=== PATIENT | male | born 1980 | race Caucasian/White ===

== ENCOUNTER 2022-03-23 10:07 | Outpatient (CLI) | payer OTHER, SELFPAY ==
[2022-03-23 13:37] LABS: Chloride* 107 mmol/L (96-114); Sodium* 141 mmol/L (135-149)
[2022-03-23 13:38] LABS: Potassium* 4.7 mmol/L (3.6-5.1)
[2022-03-23 13:40] LABS: Carbon Dioxide* 27 mmol/L (20-32); Cholesterol* 175 mg/dL (90-199); Creatinine* 0.9 mg/dL (0.5-1.5); Estimated Glomerular Filt Rate 111 ml/min
[2022-03-23 13:41] LABS: Blood Urea Nitrogen* 14 mg/dL (5-24); Calcium* 9.8 mg/dL (8.4-10.6); Glucose* 85 mg/dL (60-115); HDL Cholesterol* 61 mg/dL (>=40); LDL Cholesterol Calculated 96 mg/dL (<100); Triglycerides* 91 mg/dL (40-149)
== END 2022-03-23 10:08 | disposition home or self-care (01) ==
LOC: NFLDREF 10:07
PROVIDERS: PCP Family Medicine; Visit Provider Family Medicine
DX: I10 Essential (primary) hypertension (principal); E78.5 Hyperlipidemia, unspecified
CPT/HCPCS: 80048; 80061

== ENCOUNTER 2022-04-25 08:18 | Outpatient (CLI) | payer OTHER, SELFPAY ==
--- NOTE | 2022-04-25 09:37 | W.ANESCHARGE ---
Anesthesia Charges Start Date/Time Anesthesia Start Date: 04/25/22 Anesthesia Start Time: 09:06 Stop Date/Time Anesthesia Stop Date: 04/25/22 Anesthesia Stop Time: 09:34 Summary Emergency: No
--- NOTE | 2022-04-25 09:50 | W.ANESCHARGE ---
Anesthesia Charges Start Date/Time Anesthesia Start Date: 04/25/22 Anesthesia Start Time: 09:06 Stop Date/Time Anesthesia Stop Date: 04/25/22 Anesthesia Stop Time: 09:34 Summary Emergency: No
== END 2022-04-25 08:19 | disposition home or self-care (01) ==
PROVIDERS: PCP Family Medicine; Visit Provider Surgery
DX: K92.1 Melena (principal); K62.5 Hemorrhage of anus and rectum
CPT/HCPCS: 00811; 45385; 88305; J2704

== ENCOUNTER 2022-06-20 19:23 | Outpatient (CLI) | payer OTHER, SELFPAY ==
--- NOTE | 2022-07-11 08:50 | P.SLS_ITS ---
Sleep Study Details Details Interpreting Provider: Yosef Date of Sleep Study: 06/20/22 Sleep Study Details: STUDY TYPE:? Home ? BMI:? 43.3 ORDERING PROVIDER:Mikayla Navas INDICATION:? Concerns about sleep apnea ? SLEEP SUMMARY:? 491 monitored minutes RESPIRATORY SUMMARY:? AHI 74.3, supine 84.6, left lateral 60.8, right lateral 49.9 Low oxygen 74 10.1% of study oxygen less than 90% Snoring 17.3% PERIODIC LIMB MOVEMENTS OF SLEEP:? Not recorded CARDIAC:? Range 59-101, mean 74.2 IMPRESSION:? Severe obstructive sleep apnea somewhat worse in the supine pos ition but severe in all positions RECOMMENDATION: CPAP either AutoSet or in-lab titration. Central apnea index was 1.81 AutoSet CPAP would be reasonable.
== END 2022-06-20 19:24 | disposition home or self-care (01) ==
LOC: SLEEP 19:24
PROVIDERS: PCP Family Medicine; Visit Provider Otolaryngology
DX: G47.33 Obstructive sleep apnea (adult) (pediatric) (principal)
CPT/HCPCS: 95806

== ENCOUNTER 2022-07-11 10:54 | Outpatient (CLI) | payer OTHER, SELFPAY ==
--- NOTE | 2022-07-11 11:00 | CRLHL7_ITS ---
For Patients: As a result of the Century Cures Act, medical imaging exams and procedure reports are released immediately into your electronic medical record. You may view this report before your referring provider. If you have questions, please contact your health care provider. INDICATION: OBSTRUCTIVE SLEEP APNEA COMPARISON: none TECHNIQUE: A CT volumetric acquisition was performed of the neck during intravenous infusion of 147 cc Isovue 370 nonionic intravenous contrast. Please note that all CT scans at this facility use dose modulation, iterative reconstruction, and/or weight-based dosing when appropriate to reduce radiation dose to as low as reasonably achievable. FINDINGS: The CT images demonstrate normal aeration of the mastoid air cells and middle ear cavities. The paranasal sinuses are clear. Mild leftward deviation of the nasal septum. No jerry bullosa or nasal polyps. The parotid and submandibular glands are of normal size and have uniform enhancement. The oropharynx appears normal. The valleculae, epiglottis, aryepiglottic folds and piriform sinuses appear normal. There is a normal appearance of the larynx and subglottic trachea. The thyroid gland is of normal size and has uniform density. There is no evidence of lymphadenopathy within the anterior and posterior cervical triangles or within the supraclavicular region. The lung apices are clear. Normal osseous structures. IMPRESSION: No cervical adenopathy or mass. Mild leftward curvature of the nasal septum without jerry bullosa or nasal polyps. Please note that all CT scans at this facility use dose modulation, iterative reconstruction, and/or weight-based dosing when appropriate to reduce radiation dose to as low as reasonably achievable. Dictated by Manuel Manley MD @ 07/11/2022 1:37:17 PM (Electronically Signed)
== END 2022-07-11 10:55 | disposition home or self-care (01) ==
LOC: CT 10:55
PROVIDERS: PCP Family Medicine; Visit Provider Internal Medicine
DX: G47.33 Obstructive sleep apnea (adult) (pediatric) (principal); J34.2 Deviated nasal septum
CPT/HCPCS: 70491; Q9967

== ENCOUNTER 2022-07-17 14:40 | Outpatient (CLI) | payer OTHER, SELFPAY ==
--- NOTE | 2022-07-17 15:00 | CRLHL7_ITS ---
For Patients: As a result of the Cures Act, medical imaging exams and procedure reports are released immediately into your electronic medical record. You may view this report before your referring provider. If you have questions, please contact your health care provider. CLINICAL HISTORY: Neck pain TECHNIQUE: The carotid circulations and the vertebral arteries in the neck were examined with collins-scale ultrasound, color-flow and Doppler spectral analysis. Degrees of stenosis were determined using SRU 2002 Consensus Panel Criteria. FINDINGS: Sonographic images demonstrate no evidence of atherosclerotic plaque formation or suspicious soft tissue mass. There was antegrade blood flow demonstrated within the vertebral arteries and the subclavian arteries demonstrated a normal triphasic waveform. The spectral Doppler tracings of the common carotid, internal and external carotid arteries demonstrate no abnormal turbulence or spectral broadening. There was no significant elevation of peak systolic blood flow which would indicate a hemodynamically-significant stenosis by SRU criteria. The ICA/CCA peak systolic velocity ratio measures 0.5 on the right and 0.9 on the left. IMPRESSION: Normal carotid ultrasound. Dictated by Manuel Manley MD @ 07/18/2022 9:29:23 AM (Electronically Signed)
== END 2022-07-17 14:41 | disposition home or self-care (01) ==
LOC: US 14:41
PROVIDERS: PCP Family Medicine; Visit Provider Otolaryngology
DX: M54.2 Cervicalgia (principal)
CPT/HCPCS: 93880

== ENCOUNTER 2023-12-19 09:22 | Outpatient (CLI) | payer OTHER, SELFPAY | END 2023-12-19 09:23 | disposition home or self-care (01) | PROVIDERS: PCP Family Medicine; Visit Provider Family Medicine | DX: E78.5 Hyperlipidemia, unspecified (principal); I10 Essential (primary) hypertension; E66.9 Obesity, unspecified; Z13.29 Encounter for screening for other suspected endocrine disorder | CPT/HCPCS: 80053; 80061; 84439 ==